=== PATIENT | female | born 1955 | race Caucasian/White ===

== ENCOUNTER → 2016-12-08 | Outpatient (CLI) | payer BC ==
--- NOTE | 2016-12-08 13:31 | CT ---
EXAM DESCRIPTION: Chest w/Contrast (accession [id number]), Abdomen/Pelvis w/Contrast (accession [id number]) CLINICAL HISTORY: ENDOMETRIAL CARCINOMA COMPARISON: CT abdomen pelvis January 12, 2014 TECHNIQUE: Postcontrast CT images of the chest, abdomen, and pelvis are obtained. CT scan done according to ALARA (As Low As Reasonably Achievable). FINDINGS: CT chest: The heart and great vessels are unremarkable. Mild coronary artery calcifications are seen. Heterogeneous low-attenuation lesion in the inferior left lobe of the thyroid measures 1.5 cm transverse. No pathologically enlarged mediastinal, hilar, or axillary lymphadenopathy seen. No significant pleural or pericardial effusion. Lungs are normally aerated and clear. No worrisome pulmonary nodules are identified. Osseous structures show no aggressive bony lesions. Mild spondylitic changes of the spine are seen. CT abdomen and pelvis: Liver, spleen, pancreas, adrenal glands are unremarkable. Cholecystectomy changes are seen. Abdominal vasculature is unremarkable. Kidneys show no ureteral obstruction. Fluid attenuation parapelvic cysts on the left kidney are seen. Urinary bladder is contracted and unremarkable. Uterus is unremarkable. Mildly heterogeneous appearance to the endometrium is nonspecific on CT imaging. No abnormal adnexal mass is seen. The appendix is unremarkable. No small bowel obstruction is seen. Colon is unremarkable. No significant diverticular disease. No pathologically enlarged abdominal or retroperitoneal lymphadenopathy is seen. Osseous structures show moderate degenerative changes. No aggressive bony lesions are seen. Degenerative changes of the lower lumbar spine are seen. IMPRESSION: No CT evidence of metastatic disease to the chest, abdomen, or pelvis. Simple left parapelvic cyst. The lower pole nephrolithiasis seen on previous exam is not appreciated on today's exam because of contrast opacification of the collecting system. Incidental thyroid nodule in the lower pole left lobe. Recommend follow-up ultrasound imaging. This lesion measures 1.5 cm transverse. Electronically signed by: Geo Sandy MD 12/08/2016 1:30 PM [employer]
== END | disposition home or self-care (01) ==
LOC: CT 08:46
PROVIDERS: ATTEND Family Medicine
DX: C54.1 Malignant neoplasm of endometrium (principal)

== ENCOUNTER → 2017-02-01 | Outpatient (CLI) | payer BC ==
--- NOTE | 2017-02-01 22:53 | MRI ---
EXAM: Lumbar Spine w/o Contrast CLINICAL INDICATION: 61-year-old female with radiculopathy. Technologist note: Radiculopathy with most pain along the RIGHT posterior hip and buttocks. History of endometrial cancer. COMPARISON: None. TECHNIQUE: Multiplanar, multi-sequence MR images of the lumbar spine without contrast. FINDINGS: Lumbar spine: Heterogeneous appearance of the lumbar spine bone marrow including the vertebral bodies and posterior elements suggesting red marrow reconversion, a finding which may be seen in the setting of anemia, obesity, granulocyte colony stimulating factor administration and infiltrative marrow processes. No discrete lesion is clearly identified, however further evaluation with postcontrast imaging may be considered for further assessment. Diffusely decreased disk signal intensity present throughout the lumbar spine compatible with degenerative disk change. Decreased disk height at the L5-S1 level compatible with disk degenerative change. No increase in signal intensity is seen on STIR images to suggest acute abnormalities. The pre-and paravertebral soft tissues are within normal limits. The visualized spinal cord demonstrates normal caliber, signal intensity and morphology. L1-2: within normal limits without central or neuroforaminal narrowing. L2-3: within normal limits without central or neuroforaminal narrowing. L3-4: within normal limits without central or neuroforaminal narrowing. Ligamentum flavum hypertrophy and bilateral facet joint effusion. L4-5: Mild diffuse disk bulge otherwise within normal limits without central or neuroforaminal narrowing. Mild effacement of the bilateral lateral recess. Ligamentum flavum and LEFT facet joint effusion with mild facet hypertrophy. L5-S1: Mild diffuse disk bulge otherwise within normal limits without central spinal canal narrowing. Moderate bilateral neuroforaminal narrowing secondary to posterior osseous spurring and disk bulge. Limited abdominal imaging is within normal limits. IMPRESSION: 1. Degenerative changes of the lumbar spine as detailed above. 2. Mottled appearance of the bone marrow with differential and details as above. Electronically signed by: Amanda Donald MD 02/01/2017 10:52 PM CDT
== END | disposition home or self-care (01) ==
LOC: MRI 09:59
PROVIDERS: ATTEND Family Medicine
DX: M54.16 Radiculopathy, lumbar region (principal)

== ENCOUNTER → 2017-03-09 | Outpatient (CLI) | payer BC ==
--- NOTE | 2017-03-09 15:04 | NM ---
EXAM DESCRIPTION: Bone Scan, Whole Body CLINICAL HISTORY: 61 years Female, LUMBAR PAIN COMPARISON: None. TECHNIQUE: 29 mCi technetium MDP FINDINGS: Spot imaging of the skeletal structures demonstrates normal renal and bladder activity and a normal distribution of the isotope with no areas of abnormal increased activity in the region of the lumbar spine in this patient with back pain. The remainder of the spine and pelvis is unremarkable. Focal increased activity at the base of each great toe suggest degenerative arthropathy. Mild increased degenerative activity in the region of the right ankle is also noted. No evidence of a metastatic or destructive process is seen. IMPRESSION: Essentially normal bone scan with no abnormalities noted within the axial skeleton, particularly in the lumbar spine. Degenerative activity at the base of each great toe and in the region of the right ankle. Electronically signed by: Ariel Kumar MD 03/09/2017 3:03 PM CDT
== END ==
LOC: NM 07:26
PROVIDERS: ATTEND Physician Assistant
DX: M54.5 Low back pain (principal); Z85.9 Personal history of malignant neoplasm, unspecified

== ENCOUNTER → 2017-09-08 | Outpatient (CLI) | payer BC ==
--- NOTE | 2017-09-10 17:35 | CT ---
EXAM DESCRIPTION: Abdomen/Pelvis w/Contrast CLINICAL HISTORY: Malignant neoplasm of endometrium- Generalized abdominal pain COMPARISON: 01/12/2014 TECHNIQUE: Contiguous axial images of the abdomen and pelvis were obtained after the administration of intravenous contrast followed by reconstruction images.This exam was performed according to our departmental dose-optimization program, which includes automated exposure control, adjustment of the mA and/or kV according to patient size and/or use of iterative reconstruction technique. FINDINGS: There are small amounts of fluid in the abdomen with mild thickening of portions of the endometrium in the lower abdomen. No definite focal mass is seen. There is a probable splenule anterior to the spleen. Mild apparent thickening of the wall of the colon is again seen in the splenic flexure and descending colon but no longer seen in the transverse colon, and could reflect inflammation. Neoplasm or ischemia are less likely. There is no significant soft tissue stranding of the surrounding fat. The liver, spleen, pancreas and kidneys are within normal limits. There is no hydronephrosis. The gallbladder is surgically absent. Adrenal glands are within normal limits. Aorta is normal in caliber and tapering. No free air. No bowel obstruction. IMPRESSION: Interval development of mild thickening of portions of the mesentery along with small amounts of fluid in these regions. This is nonspecific but follow-up is recommended given this patient's history. There is again thickening of the wall of the descending colon, nonspecific. No other interval significant change. Electronically signed by: Nima Ponce 09/10/2017 5:34 PM [employer]
== END | disposition home or self-care (01) ==
LOC: CT 11:32
PROVIDERS: ATTEND Internal Medicine Gastroenterology
DX: R10.84 Generalized abdominal pain (principal)

== ENCOUNTER → 2017-09-28 | Outpatient (CLI) | payer BC ==
--- NOTE | 2017-10-04 14:09 | MAM ---
EXAM DESCRIPTION: 3D Screening BILATERAL : Digital Mammography. CLINICAL HISTORY: 62 years Female SCREENING . No complaints. No family history breast cancer. Postmenopausal. No HRT. Prior cyst aspiration and biopsy with removal of fibroadenoma right breast. COMPARISON: 2-D digital screening bilateral studies 07/19/2016 and 07/14/2015. Report from prior examination also reviewed. TECHNIQUE: Bilateral CC and MLO projection full-field images, 3-D tomosynthesis digital mammographic technique. Also bilateral synthesized CC/ MLO full-field images. CAD not utilized. FINDINGS: The breast parenchymal density pattern is: Scattered areas of fibroglandular density. No skin thickening or nipple retraction bilateral solitary microcalcifications. Left axillary lymph node. No focal, stellate mass or density, focal asymmetry , and no suspicious microcalcifications bilaterally. Stable mammograms compared to prior study, taking into account differences in mammographic technique IMPRESSION: BI-RADS CATEGORY: 2 - BENIGN FINDINGS. FOLLOW UP: Routine digital bilateral screening, one year interval from 2016. Written communication explaining the IMPRESSION and follow-up, will be mailed to the patient and referring health care provider. According to the [employer], yearly mammograms are recommended starting at age 40 and continuing as long as a woman is in good health. Any breast change noted on a breast self-exam should be reported promptly to the patient's healthcare provider. Breast MRI is recommended for women with an approximately 20-25% or greater lifetime risk of breast cancer, including women with a strong family history of breast or ovarian cancer and women who have been treated for Hodgkin's disease. A negative mammographic report should not delay tissue diagnosis in patients with significant clinical history or physical findings. Extremely dense breast tissue limits the sensitivity of digital mammography. Electronically signed by: Nima Martin MD 10/04/2017 2:07 PM [facility]
== END ==
LOC: MAMMO 11:55
PROVIDERS: ATTEND Family Medicine
DX: Z12.31 Encounter for screening mammogram for malignant neoplasm of breast (principal)
CPT/HCPCS: 77063; G0202

== ENCOUNTER → 2018-02-27 | Outpatient (CLI) | payer BC | LOC: GMAB 11:15 | PROVIDERS: ATTEND Family Medicine | DX: Z00.01 Encounter for general adult medical examination with abnormal findings (principal) ==

== ENCOUNTER 2018-04-12 21:22 | Emergency (ER) | payer BC ==
[2018-04-12] MEDS ORDERED: cefTRIAXone SODIUM 1 GM VIAL IM ONE (21:50)
[2018-04-12] MEDS ORDERED: TETANUS,DIPHTHERIA,PERTUSSIS 1 EA SYG IM ONE (21:50)
--- NOTE | 2018-04-12 21:54 | ED.PDOC ---
History of Present Illness - General Time Seen by Provider: 04/12/18 21:50 Source: patient Exam Limitations: no limitations - History of Present Illness Initial Comments: patient comes in today for fever 2 days up to 103. Patient has been feeling achy with some nausea but no emesis. Patient had noticed she had what looks like an insect bite on her right labia and right inner thigh. Patient states the one on her thigh has gotten very swollen, hot, and more painful. Patient was concerned because that side also has lymphedema that was a result of her treatment for her uterine cancer last year. Patient has taken Tylenol over-the- counter with some improvement until the Tylenol wears off and her fever returns. She has a little bit of allergies but no sore throat, nasal congestion , cough, shortness of breath, or diarrhea. She tends toward constipation and her last bowel movement was 2 days ago. Timing/Duration: yesterday Fever Severity/Quality: greater than 102 F Fever Therapy CERAMIC ARTIST: Tylenol Associated Symptoms: muscle aches, rash Review of Systems - Review of Systems Constitutional: States: fever, malaise. Denies: chills, diaphoresis EENTM: Denies: eye pain, blurred vision, ear pain, nose pain, throat pain, throat swelling, mouth pain Respiratory: Denies: cough, short of breath, wheezing Cardiology: Denies: chest pain, edema, palpitations Gastrointestinal/Abdominal: States: constipation, nausea. Denies: abdominal pain, diarrhea, vomiting Genitourinary: States: no symptoms reported. Denies: discharge, dysuria, frequency, hematuria Musculoskeletal: States: no symptoms reported Skin: States: see HPI Neurological: States: see HPI Past Medical History (General) - Patient Medical History Hx Other PMH: Yes - Uterine cancer s/p radiation, Nephrolithiasis, lymphedema Surgical History: other - Hyst - Vaccination History Hx Tetanus, Diphtheria Vaccination: Yes - Social History Hx Tobacco Use: No Family Medical History - Family History Mother Family History: No Known Physical Exam - Physical Exam General Appearance: Alert, No apparent distress Eye Exam: bilateral normal ENT Exam: normal ENT inspection, hearing grossly normal, TMs normal, pharynx normal Neck: non-tender, full range of motion, supple, normal inspection Respiratory: chest non-tender, lungs clear, normal breath sounds, no respiratory distress Cardiovascular/Chest: normal peripheral pulses, regular rate, rhythm, no edema, no gallop, no JVD, no murmur Gastrointestinal/Abdominal: normal bowel sounds, non tender, soft, no organomegaly, no pulsatile mass Extremity: other - R inner thigh with 23 x 24 cm area of erythema with central induration with no fluctulance and positive calor. R labia with erythema but no fluctulance and no sores Neurologic: no motor/sensory deficits, alert, oriented x 3 Progress - Progress Progress: 04/12/18 22:27 04/12/18 22:16 URINALYSIS Stat Laboratory Results WBC 11.7 K/mm3 (4.8-10.8) H 04/12/18 22:00 RBC 4.17 M/mm3 (4.20-5.40) L 04/12/18 22:00 Hgb 13.0 gm/dL (12.0-16.0) 04/12/18 22:00 Hct 38.6 % (36.0-47.0) 04/12/18 22:00 MCV 92.4 fl (81.0-99.0) 04/12/18 22:00 MCH 31.1 pg (27.0-31.0) H 04/12/18 22:00 MCHC 33.6 g/dL (33.0-37.0) 04/12/18 22:00 RDW 12.9 % (11.5-14.5) 04/12/18 22:00 Plt Count 181 K/mm3 (130-400) 04/12/18 22:00 MPV 8.2 fl (7.40-10.4) 04/12/18 22:00 Absolute Neuts (auto) 10.50 K/uL (1.8-6.8) H 04/12/18 22:00 Absolute Lymphs (auto) 0.50 K/uL (1.0-3.4) L 04/12/18 22:00 Absolute Monos (auto) 0.70 K/uL (0.2-0.8) 04/12/18 22:00 Absolute Eos (auto) 0.00 K/uL (0.0-0.4) 04/12/18 22:00 Absolute Basos (auto) 0.00 K/uL (0.0-0.1) 04/12/18 22:00 Neutrophils % 89.4 % (42.0-78.0) H 04/12/18 22:00 Lymphocytes % 4.0 % (20.0-50.0) L 04/12/18 22:00 Monocytes % 6.3 % (2.0-9.0) 04/12/18 22:00 Eosinophils % 0.1 % (1.0-5.0) L 04/12/18 22:00 Basophils % 0.2 % (0.0-2.0) 04/12/18 22:00 Sodium 140 mmol/L (135-145) 04/12/18 22:00 Potassium 3.5 mmol/L (3.6-5.0) L 04/12/18 22:00 Chloride 109 mmol/L (101-111) 04/12/18 22:00 Carbon Dioxide 24 mmol/L (21-31) 04/12/18 22:00 Anion Gap 10.5 (12-18) L 04/12/18 22:00 BUN 18 mg/dL (7-18) 04/12/18 22:00 Creatinine 0.77 mg/dL (0.6-1.3) 04/12/18 22:00 BUN/Creatinine Ratio 23.4 (10-20) H 04/12/18 22:00 Random Glucose 132 mg/dL (70-105) H 04/12/18 22:00 Serum Osmolality 283.2 mOsm/L (275-295) 04/12/18 22:00 Lactic Acid 0.9 mmol/L (0.5-2.2) 04/12/18 22:00 Calcium 8.7 mg/dL (8.4-10.2) 04/12/18 22:00 Total Bilirubin 0.6 mg/dL (0.2-1.0) 04/12/18 22:00 AST 36 IU/L (10-42) 04/12/18 22:00 ALT 48 IU/L (10-60) 04/12/18 22:00 Alkaline Phosphatase 77 IU/L (42-121) 04/12/18 22:00 Serum Total Protein 6.7 gm/dL (6.4-8.2) 04/12/18 22:00 Albumin 3.5 g/dl (3.2-5.5) 07/05/18 22:00 Globulin 3.2 gm/dL (2.3-3.5) 04/12/18 22:00 Albumin/Globulin Ratio 1.1 (1.1-1.9) 04/12/18 22:00 Departure - Departure Clinical Impression: Cellulitis Qualifiers: Site of cellulitis: extremity Site of cellulitis of extremity: lower extremity Laterality: right Qualified Code(s): L03.115 - Cellulitis of right lower limb Disposition: Discharge to Home or Self Care Condition: Fair Diet: regular diet Activity: increase activity as tolerated Referrals: KRYS MEDINA MD [Primary Care Provider] - 1-2 Weeks Prescriptions: Cephalexin Monohydrate [Keflex] 500 mg PO TID 10 Days #30 cap Home Medications: Ambulatory Orders Denosumab [Prolia] 60 mg SC .TWICE A YEAR 05/24/15 Esomeprazole Magnesium [Nexium 24Hr] 20 mg PO DAILY 05/24/15 Raloxifene HCl [Evista] 60 mg PO DAILY 05/24/15 Cephalexin Monohydrate [Keflex] 500 mg PO TID 10 Days #30 cap 04/12/18 Additional Instructions: Return to ER for worsening redness, increase pain, intractable emesis. Follow up with PCP in 2 days to recheck area.
[2018-04-12 22:04] VITALS: O2SAT 98
[2018-04-12] MEDS ORDERED: IBUPROFEN 200 MG TAB PO ONE (22:16)
[2018-04-12] MEDS ORDERED: LIDOCAINE 1% 2 ML VIAL INJ ONE (22:21)
[2018-04-12 22:57] VITALS: BP 109/58; TEMP 101
== END 2018-04-12 22:57 | disposition home or self-care (01) ==
LOC: ER 21:22
DX: L03.115 Cellulitis of right lower limb (principal); Z85.42 Personal history of malignant neoplasm of other parts of uterus; Z23 Encounter for immunization
CPT/HCPCS: 36415; 80053; 81001; 83605; 85025; 90471; 90715; J0696

== ENCOUNTER → 2018-06-09 | Outpatient (CLI) | payer BC, MEDICARE ==
--- NOTE | 2018-06-09 10:15 | RAD ---
EXAM DESCRIPTION: Hand,Right 3 Views CLINICAL HISTORY: HAND PAIN COMPARISON: None FINDINGS: Three x-ray views of the right hand were submitted. There is an acute mildly displaced transverse fracture at the metadiaphysis of the proximal phalanx of the fifth digit. There is no dislocation.. There is no radiopaque foreign body material. IMPRESSION: Acute mildly displaced transverse fracture at the metadiaphysis of the proximal phalanx of the fifth digit. There is no dislocation. Electronically signed by: Charles Becerril MD 06/09/2018 10:14 AM CDT
== END ==
LOC: RAD 09:49
PROVIDERS: ATTEND Nurse Practitioner Family
DX: S62.646A Nondisplaced fracture of proximal phalanx of right little finger, initial encounter for closed fracture (principal)

== ENCOUNTER → 2018-10-03 | Outpatient (CLI) | payer BC, MEDICARE ==
--- NOTE | 2018-10-04 11:17 | MAM ---
EXAM DESCRIPTION: 3D Screening BILATERAL : Digital Mammography. CLINICAL HISTORY: 63 years Female ANNUAL SCREENING . No complaints. No personal or family history of breast cancer. Childbirth. Postmenopausal. No HRT. Prior cyst aspiration biopsy right breast. Lifetime risk of developing breast cancer (Tyrer-Cuzick model)(%): 8.7. COMPARISON: Bilateral screening digital breast tomosynthesis 09/28/2017.. No prior reports available. TECHNIQUE: Bilateral CC and MLO projection full-field images, digital tomosynthesis mammographic technique. Bilateral digital 2-D full-field MLO images. CAD not available for tomosynthesis or 2-D images. FINDINGS: The breast parenchymal density pattern is: Scattered areas of fibroglandular density. No skin thickening or nipple retraction. Bilateral solitary microcalcifications. Vascular calcifications bilaterally. No new focal, stellate mass or density, focal asymmetry , and no suspicious microcalcifications bilaterally. Stable mammograms compared to prior study. IMPRESSION: Benign exam. BIRAD CATEGORY: 2 BENIGN FINDINGS. RECOMMENDATIONS: FOLLOW UP: Routine digital bilateral mammographic screening, one year interval from September 2018. Written communication explaining the IMPRESSION and follow-up, will be mailed to the patient and referring health care provider. According to the [employer], yearly mammograms are recommended starting at age 40 and continuing as long as a woman is in good health. Any breast change noted on a breast self-exam should be reported promptly to the patient's healthcare provider. Breast MRI is recommended for women with an approximately 20-25% or greater lifetime risk of breast cancer, including women with a strong family history of breast or ovarian cancer and women who have been treated for Hodgkin's disease. A negative mammographic report should not delay tissue diagnosis in patients with significant clinical history or physical findings. Extremely dense breast tissue limits the sensitivity of digital mammography. Electronically signed by: Nima Martin MD 10/04/2018 11:16 AM HAND SLITTER
== END ==
LOC: MAMMO 09:00
PROVIDERS: ATTEND Family Medicine
DX: Z12.31 Encounter for screening mammogram for malignant neoplasm of breast (principal)

== ENCOUNTER → 2019-01-09 | Outpatient (CLI) | payer MEDICARE, BC ==
--- NOTE | 2019-01-10 08:07 | MRI ---
EXAM DESCRIPTION: Lumbar Spine w/o Contrast CLINICAL HISTORY: LUMBAR RADICULOPATHY, right lower extremity pain. COMPARISON: May 23, 2018 TECHNIQUE: MRI of the lumbar spine is performed according to our usual protocol with axial and sagittal multi sequence imaging. FINDINGS: Normal alignment of the vertebral column is present with preservation of vertebral height and advanced disc desiccation and disc space narrowing at L5-S1, unchanged from prior study with endplate irregularity. Marrow signal is not increased to suggest either an edematous process or infiltrative process. The conus is positioned at the L1-2 level with no intradural or intramedullary mass noted. Multilevel mild disc desiccation from L2-3 and distally is noted and unchanged from prior study. Lower thoracic spine and thoracolumbar junction is normal. The retroperitoneal and paraspinous structures are normal. L1-2: the disc is well hydrated. There is no loss of height. There is no bulging. The facets are unremarkable with no significant hypertrophy. There is no stenosis or impingement. L2-3: Mild disc desiccation with preserved disc height and endplate appearance with normal disc contour and minimal facet arthropathy with adequate canal and neural foramina. L3-4: Mild disc desiccation with minimal annular prominence but normal disc contour with mild facet arthropathy and adequate canal and neural foramina. L4-5: Mild disc desiccation with preserved disc height with mild annular bulge and adequate canal. Moderate ligamentum flavum hypertrophy and mild facet arthropathy. With modest narrowing at the entrance of each L4 neural foramen without lateralizing right or left of protrusion or herniation. The thecal sac is lower limits of normal. L5-S1: Degenerative disc narrowing and loss of signal with mild annular bulge with adequate canal, unchanged. Adequate left lateral recess and neural foramen modest right L5 foraminal narrowing secondary to disc space narrowing facet disease and a small right lateral and far lateral disc protrusion. This also abuts the descending S1 nerve root within the lateral recess. IMPRESSION: 1. Mild multilevel disc desiccation, unchanged from prior studies with no significant neural compression. The thecal sac is lower range of normal at L4-5 with modest ligamentum flavum hypertrophy and mild annular bulge. 2. Abnormal L5-S1 disc with disc space narrowing disc desiccation and broad-based annular bulge and a very small right lateral and far lateral disc protrusion with modest compromise on a multifactorial basis of the right L5 neural foramen and annular bulge abutting the descending right S1 nerve root. Mild right-sided neural compression at this level suspected Electronically signed by: Ariel Kumar MD 01/10/2019 8:04 AM CDT
== END ==
LOC: MRI 09:00
PROVIDERS: ATTEND Physician Assistant
DX: M51.16 Intervertebral disc disorders with radiculopathy, lumbar region (principal)

== ENCOUNTER → 2019-02-08 | Outpatient (CLI) | payer MEDICARE, BC ==
--- NOTE | 2019-02-10 08:34 | CT ---
EXAM DESCRIPTION: Pelvis: Computed Tomography. CLINICAL HISTORY: SACROCOCCYGEAL DISORDERS. Back and right hip pain for 3 months. COMPARISON: MRI lumbar spine without contrast 01/09/2019. CT scan abdomen and pelvis 05/24/2018. TECHNIQUE: Spiral-axial scans 2.5 x 2.5 mm intervals through the pelvis: no water soluble barium contrast; no IV contrast. Coronal and sagittal 2.0 mm reconstructions. Total Exam DLP: 575.45 mGy-cm. This exam was performed according to our departmental CT dose-optimization program which includes automated exposure control, adjustment of the mA and/or kV according to patient size and/or use of iterative reconstruction technique; to reduce radiation dose to as low as reasonably achievable (ALARA). FINDINGS: Pelvic Organs: Urinary bladder not well distended with no radiodense stones. Vaginal cuff is unremarkable. Ovaries not seen in the adnexa. No free fluid. Mesentery: Negative. Small Bowel: Normal caliber included segments. Terminal Ileum: Normal caliber. Cecum: normal caliber. Appendix not seen. Colon: Normal caliber included segments. Spine: Moderate to severe disc space loss with posterior disc osteophyte bulge into the canal with moderate narrowing. Right side disc osteophyte complex encroaching on the right foramen and the exiting right L5 nerve. Minimal encroachment on the right subarticular recess by endplate spurs. Bilateral hypertrophic arthrosis facet joints more right than left with right side spurs abutting the right subarticular recess and impressing on the right lateral thecal sac. Moderate to severe narrowing of the left foramen by endplate spurs also abutting the exiting left L5 nerve in the foramen and the descending left S1 nerve in the lateral recess. Minimal bulging of the L4-5 disc posteriorly in the midline narrowing the canal with moderate soft tissue narrowing of the left L4-5 foramen, abutting the exiting left L4 nerve. Bony Pelvis: Marginal spurs on the anterior and superior SI joints with gas formation in the joint space. Hypertrophic arthrosis pubic symphysis. Bilateral narrowing of the posterior hip joints. Hypertrophy of the superior lateral left acetabulum with spur abutting the mid and posterior aspect of the inferior-lateral femoral head articular surface. Inguinal Canals: Bilateral fatty inguinal hernias not containing bowel. Pelvic Wall/Back Soft Tissues: Minimal diastases of the umbilicus but no bowel herniation. IMPRESSION: 1. Right-sided disc osteophyte complex at L5-S1 encroaching on the right foramen and the exiting right L5 nerve. Endplate spurs and right facet arthropathy with narrowing of the right subarticular recess. Moderate to severe narrowing of the left foramen with endplate spurs encroaching on the foramen and abutting the left L5 nerve. 2. Hypertrophic changes in the superior lateral left acetabular facet narrowing the lateral and posterolateral hip joint and abutting the opposing femoral head. Electronically signed by: Nima Martin MD 02/10/2019 8:32 AM CDT
== END ==
LOC: CT 13:16
PROVIDERS: ATTEND Neurological Surgery
DX: M53.3 Sacrococcygeal disorders, not elsewhere classified (principal); M46.07 Spinal enthesopathy, lumbosacral region

== ENCOUNTER → 2019-04-03 | Outpatient (CLI) | payer MEDICARE, BC | LOC: GMAE 11:32 | PROVIDERS: ATTEND Family Medicine | DX: I10 Essential (primary) hypertension (principal); E78.2 Mixed hyperlipidemia; E55.9 Vitamin D deficiency, unspecified ==

== ENCOUNTER 2019-06-11 09:05 | Emergency (ER) | payer MEDICARE, BC ==
[2019-06-11] MEDS ORDERED: ONDANSETRON INJ 4 MG/2 ML VIAL IV ONE (09:25)
[2019-06-11] MEDS ORDERED: LACTATED RINGERS 1,000 ML IVS ONE (09:27)
--- NOTE | 2019-06-11 10:19 | ED.PDOC ---
History of Present Illness - General Chief Complaint: Abdominal Pain Stated Complaint: Abdominal cramping, low back discomfort Time Seen by Provider: 06/11/19 09:07 Information Source: patient, RN/MD Exam Limitations: no limitations - History of Present Illness Initial Comments: Patient is a 63 yo F presenting with complaints of abdominal pain and diarrhea since yesterday evening. She denies any fevers or chills. She has not any dysuria, hematuria, or urinary frequency. She was at a barbecue yesterday afternoon however no one else became sick after eating ribs. She denies any recent antibiotics or hospitalizations. She has no previous history of appendectomy. She does have a previous history of diverticulitis. Patient also has a previous history of uterine cancer status post hysterectomy. She states the pain is currently in her lower abdomen bilaterally. The pain has radiated previously to her lower back. Abdominal Pain Onset Location: RLQ, LLQ Pain Radiation: back Quality: moderate, cramping, waxing/waning Timing/Duration: 7-24 hours Improving Factors: nothing Worsening Factors: nothing Associated Symptoms: back pain, diarrhea Review of Systems - Review of Systems Constitutional: States: no symptoms reported EENTM: States: no symptoms reported Respiratory: States: no symptoms reported Cardiology: States: no symptoms reported Gastrointestinal/Abdominal: States: abdominal pain, diarrhea Genitourinary: States: no symptoms reported Past Medical History (General) - Patient Medical History Hx Stroke: No Hx Congestive Heart Failure: No Hx Diabetes: No Hx Gastroesophageal Reflux: Yes - Hx IBS Hx Cancer: Yes - Uterine 2017 Surgical History: Hysterectomy - Vaccination History Hx Tetanus, Diphtheria Vaccination: Yes Hx Influenza Vaccination: Yes - 2018 Hx Pneumococcal Vaccination: Yes - Social History Hx Tobacco Use: No Hx Alcohol Use: Yes - Infrequent Hx Depression: No Hx Physical Abuse: No Hx Emotional Abuse: No - Female History Patient : No Family Medical History - Family History Mother Family History: No Known Hx Family Hypertension: Yes - mom/dad Hx Cardiac Disease: Yes - mom Physical Exam - Physical Exam General Appearance: Alert, No apparent distress, Well Developed, Well Nourished Neck: full range of motion, supple, normal inspection Respiratory: lungs clear, normal breath sounds, no respiratory distress, no accessory muscle use Cardiovascular/Chest: normal peripheral pulses, regular rate, rhythm, no edema Gastrointestinal/Abdominal: normal bowel sounds, soft, tenderness - LLQ and RLQ. No TTP at [place]. No Pryor sign Back Exam: normal inspection, no CVA tenderness Neurologic: alert, oriented x 3 Progress - Progress Progress: DDx: Appendicitis, diverticulitis, gastroenteritis, enteritis, renal stone, UTI, pyelonephritis, infectious colitis 06/11/19 10:30 Patient updated on plan for lab work, zofran, fluids, Fentanyl and CT Abdomen pelvis. 06/11/19 11:07 Patient updated on results of lab work and CT findings. She is feeling better and cramping has resolved. Her symptoms are likely from enteritis vs. gastroenteritis given findings seen on CT. Patient feels comfortable with plan for discharge home with Rx for Bentyl. Appendicitis return instructions given. 06/11/19 11:48 patient presents for evaluation of abdominal pain and diarrhea. She is overall well-appearing and mechanically stable. Given her bilateral lower abdominal tenderness and diarrhea, CT abdomen and pelvis was obtained. CBC was suggestive of a slight leukocytosis with neutrophilic shift. Metabolic panel was significant for prerenal azotemia which she was given a liter of lactated Ri nger's. She was not acidotic. Urinalysis was not significant for signs of a urinary tract infection. Her symptoms weren't consistent with pyelonephritis. Her symptoms are also inconsistent with renal stone and renal colic. CT was significant for no signs of diverticulitis, colitis, or appendicitis. Her cramping pain had subsided following CT scan. Her symptoms were more consistent with enteritis. I discussed that we will plan for discharge home with a prescription for Bentyl. Discussed that the patient should return to the ER immediately if she starts having fevers, decreased appetite, or worsening abdominal pain localizing to the right lower quadrant. She was comfortable with plan for discharge home and outpatient follow-up. - Results/Orders Results/Orders: 06/11/19 09:27 Hold Metformin x 48Hrs [id number] Laboratory Results WBC 11.5 K/mm3 (4.8-10.8) H 06/11/19 09:19 RBC 4.71 M/mm3 (4.20-5.40) 06/11/19 09:19 Hgb 14.6 gm/dL (12.0-16.0) 06/11/19 09:19 Hct 43.4 % (36.0-47.0) 06/11/19 09:19 MCV 92.2 fl (81.0-99.0) 06/11/19 09:19 MCH 30.9 pg (27.0-31.0) 06/11/19 09: MCHC 33.5 g/dL (33.0-37.0) 06/11/19 09:19 RDW 13.3 % (11.5-14.5) 06/11/19 09:19 Plt Count 200 K/mm3 (130-400) 06/11/19 09:19 MPV 8.8 fl (7.40-10.4) 06/11/19 09:19 Absolute Neuts (auto) 8.60 K/uL (1.8-6.8) H 06/11/19 09:19 Absolute Lymphs (auto) 1.80 K/uL (1.0-3.4) 06/11/19 09:19 Absolute Monos (auto) 0.90 K/uL (0.2-0.8) H 06/11/19 09:19 Absolute Eos (auto) 0.20 K/uL (0.0-0.4) 06/11/19 09:19 Absolute Basos (auto) 0.00 K/uL (0.0-0.1) 06/11/19 09:19 Neutrophils % 75.1 % (42.0-78.0) 06/11/19 09:19 Lymphocytes % 15.6 % (20.0-50.0) L 06/11/19 09:19 Monocytes % 7.5 % (2.0-9.0) 06/11/19 09:19 Eosinophils % 1.6 % (1.0-5.0) 06/11/19 09:19 Basophils % 0.2 % (0.0-2.0) 06/11/19 09:19 Sodium 140 mmol/L (135-145) 06/11/19 09:19 Potassium 3.3 mmol/L (3.6-5.0) L 06/11/19 09:19 Chloride 106 mmol/L (101-111) 06/11/19 09:19 Carbon Dioxide 24 mmol/L (21-31) 06/11/19 09:19 Anion Gap 13.3 (12-18) 06/11/19 09:19 BUN 16 mg/dL (7-18) 06/11/19 09: Creatinine 0.73 mg/dL (0.6-1.3) 06/11/19 09: BUN/Creatinine Ratio 21.9 (10-20) H 06/11/19 09:19 Random Glucose 104 mg/dL (70-105) 06/11/19 09:19 Serum Osmolality 280.9 mOsm/L (275-295) 06/11/19 09: Calcium 9.3 mg/dL (8.4-10.2) 06/11/19 09: Total Bilirubin 0.6 mg/dL (0.2-1.0) 06/11/19 09: AST 24 IU/L (10-42) 06/11/19 09: ALT 24 IU/L (10-60) 06/11/19 09: Alkaline Phosphatase 45 IU/L (42-121) 06/11/19 09: Serum Total Protein 6.9 gm/dL (6.4-8.2) 06/11/19 09: Albumin 3.9 g/dl (3.2-5.5) 06/11/19 09: Globulin 3.0 gm/dL (2.3-3.5) 06/11/19 09: Albumin/Globulin Ratio 1.3 (1.1-1.9) 06/11/19 09: Lipase 24 U/L (22-51) 06/11/19 09:19 Urine Color Yellow (Yellow) 06/11/19 10:34 Urine Appearance Clear (Clear) 06/11/19 10:34 Urine pH 8.5 (4.5-7.8) H 06/11/19 10:34 Ur Specific [place] 1.015 (1.005-1.030) 06/11/19 10:34 Urine Protein Negative mg/dL 06/11/19 10:34 Urine Glucose (UA) Negative mg/dL (Negative) 06/11/19 10:34 Urine Ketones Trace mg/dL (NEGATIVE) 06/11/19 10:34 Urine Blood Negative (Negative) 06/11/19 10:34 Urine Nitrite Negative 06/11/19 10:34 Urine Bilirubin Negative (NEGATIVE) 06/11/19 10:34 Urine Urobilinogen 0.2 mg/dL (0.2-1.0) 06/11/19 10:34 Ur Leukocyte Esterase Negative (Negative) 06/11/19 10:34 Urine RBC 0-1 /hpf 06/11/19 10:34 Urine WBC 0-1 /hpf 06/11/19 10:34 Ur Epithelial Cells 0 /hpf 06/11/19 10:34 Amorphous Sediment Trace 06/11/19 10:34 Urine Bacteria Rare 06/11/19 10:34 Urine Mucus Trace 06/11/19 10:34 CT Abdomen Pelvis: FINDINGS: The lung bases are clear. The liver and spleen are normal in appearance. The gallbladder is been previously removed. Surgical clips are seen in the region of gallbladder fossa. No biliary ductal dilatation is observed. The pancreas is normal in appearance. Imaging of the kidneys reveals no evidence of hydronephrosis mass or cyst. 2 small nonobstructing stones are identified in the left kidney. The largest measures 4.7 mm in diameter. Small lower pole right renal calculus is observed measuring 3.2 mm in diameter. No bowel abnormality is detected. A ventral hernia is observed in the left upper quadrant containing fat. No free fluid is observed. The patient is post hysterectomy. No inguinal region abnormality is seen. Degenerative changes are observed in the lower lumbar spine. IMPRESSION: 1. Cholecystectomy. 2. Small bilateral nonobstructing renal calculi are observed. 3. A ventral hernia is observed in the left upper quadrant containing fat. 4. Hysterectomy Departure - Departure Clinical Impression: Enteritis Time of Disposition: 11:09 Disposition: Discharge to Home or Self Care Departure Forms: ED Discharge - Pt. Copy, Patient Portal Self Enrollment Instructions: DI for Abdominal Pain-Adult Diet: bland diet Activity: increase activity as tolerated Prescriptions: Dicyclomine HCl [Bentyl] 10 mg PO QID #12 tab Home Medications: Ambulatory Orders Denosumab [Prolia] 60 mg SC .TWICE A YEAR 05/24/15 Esomeprazole Magnesium [Nexium 24Hr] 40 mg PO DAILY 05/24/15 Diclofenac [Zorvolex] 35 mg PO TID 04/12/18 Gabapentin [Neurontin] 600 mg PO TID 04/12/18 Tramadol HCl 50 mg PO BID 05/23/18 Dicyclomine HCl [Bentyl] 10 mg PO QID #12 tab 06/11/19
[2019-06-11] MEDS ORDERED: fentaNYL CITRATE INJ 50 MCG/ML AMP IV ONE (10:39)
--- NOTE | 2019-06-11 10:53 | CT ---
EXAM DESCRIPTION: Abdomen/Pelvis w/Contrast CLINICAL HISTORY: 63 years Female, LLQ and RLQ Pain COMPARISON: 23 May 2018 TECHNIQUE: Transaxial images were obtained with intravenous contrast medium without oral contrast media. Sagittal and coronal reconstruction was performed.This exam was performed according to our departmental dose-optimization program, which includes automated exposure control, adjustment of the mA and/or kV according to patient size and/or use of iterative reconstruction technique. FINDINGS: The lung bases are clear. The liver and spleen are normal in appearance. The gallbladder is been previously removed. Surgical clips are seen in the region of gallbladder fossa. No biliary ductal dilatation is observed. The pancreas is normal in appearance. Imaging of the kidneys reveals no evidence of hydronephrosis mass or cyst. 2 small nonobstructing stones are identified in the left kidney. The largest measures 4.7 mm in diameter. Small lower pole right renal calculus is observed measuring 3.2 mm in diameter. No bowel abnormality is detected. A ventral hernia is observed in the left upper quadrant containing fat. No free fluid is observed. The patient is post hysterectomy. No inguinal region abnormality is seen. Degenerative changes are observed in the lower lumbar spine. IMPRESSION: 1. Cholecystectomy. 2. Small bilateral nonobstructing renal calculi are observed. 3. A ventral hernia is observed in the left upper quadrant containing fat. 4. Hysterectomy Electronically signed by: Jorge A Whitehead MD 06/11/2019 10:52 AM CDT
[2019-06-11 12:27] VITALS: BP 117/72; TEMP 98.4; O2SAT 98
== END 2019-06-11 12:26 | disposition home or self-care (01) ==
LOC: ER 09:05
DX: K52.9 Noninfective gastroenteritis and colitis, unspecified (principal); K21.9 Gastro-esophageal reflux disease without esophagitis; Z85.42 Personal history of malignant neoplasm of other parts of uterus; Z90.710 Acquired absence of both cervix and uterus; Z90.49 Acquired absence of other specified parts of digestive tract; Z87.19 Personal history of other diseases of the digestive system
CPT/HCPCS: 36415; 74177; 80053; 81001; 83690; 85025; J2405; J3010; J7120

== ENCOUNTER → 2019-09-19 | Outpatient (CLI) | payer MEDICARE, BC ==
--- NOTE | 2019-09-20 16:39 | RAD ---
EXAM DESCRIPTION: Lumbar Spine 5 Views: CR/DR/XR CLINICAL HISTORY: 64 years Female SPINAL STENOSIS COMPARISON: MRI lumbar spine without contrast on the same visit. TECHNIQUE: 4 views. AP Lateral Lateral bilateral flexion-extension. Technically difficult study due to patient large body habitus and decreased bone density. FINDINGS: Lumbar type vertebra: 4. Transitional vertebrae: Fifth lumbar vertebra has a elongated right transverse process that articulates with the right iliac bone superior to the right SI joint. Disc spaces: Marked disc space loss L5-S1 with sclerosis of the endplates. Compression deformities: None. Bone Density: Mild to moderate bone density loss. Alignment: L4-5 and L5-S1 disc spaces and vertebral remain relatively stable with extension with the more superior segments moving posteriorly. With flexion, there is minimal forward movement from L3 to S1 but L4-5 and L5-S1 are unchanged. AP view shows mild L2-S1 levoscoliosis. Facet joints: Bilateral arthrosis L4-5 and L5-S1. Abdomen: Nonspecific bowel gas pattern. Large body habitus. IMPRESSION: L5 transitional vertebra involving the right transverse process. Advanced spondylosis L5-S1. Essentially no flexion or extension at L4-5 and L5-S1. Bilateral arthrosis L4-5 and L5-S1. Electronically signed by: Nima Martin MD 09/20/2019 4:38 PM FRONT END ASSISTANT
--- NOTE | 2019-09-20 17:04 | MRI ---
EXAM DESCRIPTION: Lumbar Spine w/o Contrast : Magnetic Resonance Imaging. CLINICAL HISTORY: LUMBAR STENOSIS COMPARISON: MRI scan lumbar spine 09 January 2019. TECHNIQUE: Multiplanar, multiple standard sequences, non contrast MRI, lumbar spine. FINDINGS: L5-S1: The disc is well visualized on axial T2 series 501, image 3. Moderate to severe disc space loss L5-S1 more to the left of midline and anterior. Moderate endplate reactive changes. Posterior small disc spur complex abutting the anterior thecal sac. Minimal degenerative hypertrophy of the bilateral facet joints and posterior flavum ligaments with minimal central canal stenosis. Moderate bilateral foraminal narrowing more on the left than the right. Stable since the prior study. L4-L5: Disc desiccation posterior midline tiny bulge. Degenerative hypertrophy of the posterior elements with narrowing of the posterior canal. AP canal diameter 10 mm. Moderate narrowing of the left foramen and mild narrowing of the right foramen. No change from the prior study. L3-L4: Normal signal in the disc and disc space maintained. Trace retrolisthesis. Tiny posterior bulge. Mild hypertrophic degeneration of the posterior elements. AP canal diameter 12 mm. Mild to moderate narrowing of the right foramen and mild narrowing of the left foramen. Stable since the prior study. L2-L3: Normal signal in the disc with disc space maintained. Canal and foramina patent. Minimal hypertrophy of the posterior ligaments and facets. Mild canal narrowing. Bilateral foramina are patent. No change from the prior study. L1-L2: Normal signal in the disc with disc space maintained. Minimal hypertrophy of the posterior ligaments. Canal and foramina are patent. Conus termination is below the disc space. Stable since the prior study. T12-L1: Disc, disc spaces, canal, foramina, and posterior elements are unremarkable. No change from the prior study. No scoliosis. Paravertebral soft tissues large body habitus posterior to the spine.. Distal cord normal signal and caliber. Normal marrow signal in the remaining vertebral bodies and the posterior elements. Vertebral bodies are not compressed at any level. IMPRESSION: 1. Multiple levels of hypertrophic degenerated flavum ligaments and degenerative facets at some levels. Some discs are desiccated but no significant bulging and no herniation. Upper level discs are minimally desiccated are normal. 2. Multifactorial borderline mild central canal stenosis at L4-L5 with moderate narrowing of the left foramen. No change from the prior study. 3. Moderate spondylosis L5-S1 and minimal central canal stenosis. Moderate foraminal narrowing. Stable since the prior study. No canal stenosis at other levels. Electronically signed by: Nima Martin MD 09/20/2019 5:02 PM [facility]
== END ==
LOC: MRI 13:00
PROVIDERS: ATTEND Anesthesiology Pain Medicine
DX: M48.062 Spinal stenosis, lumbar region with neurogenic claudication (principal); M47.896 Other spondylosis, lumbar region; M47.897 Other spondylosis, lumbosacral region

== ENCOUNTER → 2019-12-19 | Outpatient (CLI) | payer MEDICARE, BC | DX: Z12.31 Encounter for screening mammogram for malignant neoplasm of breast (principal) ==

== ENCOUNTER → 2020-02-05 | Outpatient (CLI) | payer MEDICARE, BC | LOC: GMAE 16:13 | PROVIDERS: ATTEND Family Medicine | DX: E55.9 Vitamin D deficiency, unspecified (principal); M81.0 Age-related osteoporosis without current pathological fracture ==

== ENCOUNTER → 2020-02-20 | Outpatient (CLI) | payer MEDICARE, BC ==
--- NOTE | 2020-02-20 10:23 | CT ---
EXAM DESCRIPTION: CT ABDOMEN AND PELVIS WITH CONTRAST CLINICAL HISTORY: BENIGN LIPOMATOUS NEOPLASM COMPARISON: June 11, 2019 TECHNIQUE: CT of the abdomen and pelvis are performed during IV bolus administration of nonionic contrast. Oral contrast media was not administered. This exam was performed according to our departmental dose-optimization program, which includes automated exposure control, adjustment of the mA and/or kV according to patient size and/or use of iterative reconstruction technique. FINDINGS: Lung bases are clear without infiltrate or effusion or mass. The liver normally enhances without enlargement or cystic or solid mass with surgical absence of the gallbladder and no evidence of ductal dilation. A small normal spleen is present. Small normal adrenal glands and normal enhancement of the pancreas without cystic or solid mass noted. The aorta and vena cava and retroperitoneum is unremarkable. Two small nonobstructing approximate 3 mm calculi lower pole of the right kidney within the calyces without hydronephrosis noted. Additional small three or 4 mm calculi involving the mid and lower pole left kidney with mild parapelvic cyst formation is present. No worrisome cystic or solid masses of either kidney evident. Small bilateral pelvic phleboliths an unremarkable appearance of the bladder noted. Delayed imaging demonstrates a small extrarenal pelvis bilaterally with single collecting system and layering contrast within the bladder. Small and large bowel caliber is normal with moderate stool in the right and transverse colon. Small normal appendix or portion of the appendix identified in a retrocolic location and normal in appearance. Minimal diverticulosis of the left colon suggested. No acute inflammatory changes or obstruction or ileus noted. Within the pelvis a normal vaginal cuff without identification of the uterus or adnexal structures noted. No abdominal or pelvic ascites noted. Left upper quadrant ventral hernia containing mesenteric fat several centimeters above the level of the umbilicus with an approximate 12 or 14 mm defect evident at the lateral margin of the rectus muscle noted with mesenteric fat extending laterally and posteriorly from this point in the subcutaneous structures. Slight enlargement of the amount of herniated fat is evident compared to previous 2019 study. This corresponds to the marked area of concern with the herniated fat approximately 2 cm in thickness and 9 cm in transverse. Bony spine is normally aligned with advanced degenerative disc narrowing at L5-S1 with vacuum phenomena. A distraction device between the L4 and L5 spinous processes is noted posteriorly. No destructive process or other abnormality noted. IMPRESSION: 1. Left upper quadrant ventral hernia defect at the lateral rectus muscle margin proximally 14 mm in diameter with increasing herniated mesenteric fat into the lateral subcutaneous tissues approximately 2 cm in thickness and 9 cm in diameter, slightly increased from previous study. No evidence of bowel herniation noted. 2. Minimal left colonic diverticulosis. 3. Small nonobstructing calyceal stones both kidneys 4. Minimal parapelvic cyst formation left renal hilum. 5. Advanced degenerative disc narrowing L5-S1. Electronically signed by: Ariel Kumar MD 02/20/2020 10:21 AM CDT
== END ==
LOC: CT 09:00
PROVIDERS: ATTEND Internal Medicine Gastroenterology
DX: D17.9 Benign lipomatous neoplasm, unspecified (principal); K43.9 Ventral hernia without obstruction or gangrene; K57.30 Diverticulosis of large intestine without perforation or abscess without bleeding; N20.0 Calculus of kidney; N28.1 Cyst of kidney, acquired; M51.37 Other intervertebral disc degeneration, lumbosacral region

== ENCOUNTER → 2020-04-15 | Outpatient (CLI) | payer MEDICARE, BC ==
--- NOTE | 2020-04-15 09:16 | MRI ---
Study: MRI of the Right Knee. Indication: PAIN Technique: Multiplanar, multi sequence MRI of the right knee was obtained without intravenous contrast. Comparison: None. Findings: Mild mucoid degeneration proximal PCL without acute tear. ACL intact. 2 tiny loose bodies posterior to the PCL insertion measuring up to 5 mm. MCL and lateral collateral ligament complex intact. Degenerative signal change posterior horn and body medial meniscus without tear. High-grade radial tearing and attenuation posterior root attachment lateral meniscus but without complete transection. Grade 2 chondral thinning of the medial knee compartment. Subtle grade 3/4 chondrosis and mild subchondral cystic change posteromedial margin of the lateral tibial plateau with additional grade 2 chondral thinning throughout the lateral compartment. Low-grade tendinosis quadriceps tendon insertion as well as patellar tendon origin. No tear. Patella normally located. Patchy grade 2/3 chondral fibrillation throughout the patella most pronounced medially. Moderate size knee effusion. No acute fracture. Impression: High-grade radial tearing and attenuation posterior root attachment lateral meniscus with scattered degenerative signal change medial meniscus. Grade 2 chondral thinning medial and lateral knee compartments but with a dominant area of grade 3/4 chondrosis at the posteromedial margin of the lateral tibial plateau. 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 Moderate size knee effusion with 2 tiny loose bodies posterior to the PCL. Mucoid degeneration PCL. Electronically signed by: Phil Hung MD 04/15/2020 9:15 AM CDT
== END ==
LOC: MRI 07:00
PROVIDERS: ATTEND Family Medicine
DX: M23.300 Other meniscus derangements, unspecified lateral meniscus, right knee (principal); M23.303 Other meniscus derangements, unspecified medial meniscus, right knee; M94.261 Chondromalacia, right knee; M25.461 Effusion, right knee; M23.41 Loose body in knee, right knee

== ENCOUNTER → 2020-05-15 | Outpatient (CLI) | payer MEDICARE, BC ==
--- NOTE | 2020-05-15 13:03 | RAD ---
EXAM DESCRIPTION: Knee,Right Complete CLINICAL HISTORY: 64 years Female, PAIN IN RIGHT KNEE COMPARISON: None. Findings: Four views/radiographs Location: Right knee No acute fracture or dislocation. Lateral patellofemoral narrowing. Osteopenia. No significant joint effusion. IMPRESSION: No evidence of acute process in the right knee. Electronically signed by: Dung Alexander MD 05/15/2020 1:01 PM CDT
== END ==
LOC: RAD 08:24
PROVIDERS: ATTEND Orthopaedic Surgery
DX: M25.561 Pain in right knee (principal)

== ENCOUNTER → 2020-08-26 | Outpatient (CLI) | payer MEDICARE, BC | LOC: GMAE 14:30 | PROVIDERS: ATTEND Family Medicine | DX: E55.9 Vitamin D deficiency, unspecified (principal) ==

== ENCOUNTER → 2020-10-29 | Outpatient (CLI) | payer MEDICARE, BC ==
--- NOTE | 2020-10-29 17:37 | MRI ---
EXAM DESCRIPTION: Brain w/wo Contrast: Magnetic Resonance Imaging. CLINICAL HISTORY: 65 years Female HEARING LOSS COMPARISON: MRI scan of the brain without contrast April 2016. TECHNIQUE: Multiplanar, high-field MRI, multiple conventional sequences, and thin slice images of the temporal bone and internal auditory canals in the coronal and axial planes, without and with gadolinium IV contrast. No adverse reactions. Multiple axial diffusion sequences. FINDINGS: The left vestibulocochlear nerves in the left internal auditory canal are more posteriorly located compared to the contralateral right distended cochlear nerves and IAC. Also possible atrophy the left vestibulocochlear nerves. No mass or abnormal contrast enhancement bilaterally. Asymmetric bone formation on the left abutting the IAC with increased amount of bone formation, and decreased amount of mastoid air cells superiorly and inferiorly compared to the left side. No abnormal fluid in the bilateral mastoid air cells. Small foci of hyperintense FLAIR signal in the supraventricular and subcortical white matter frontoparietal and occipital lobes. No hemorrhage, no cerebral edema, no mass-effect. No abnormal contrast enhancement. Normal signal in the bilateral basal ganglia. Normal contrast enhancement. Normal signal in the brainstem and cerebellar hemispheres. No hemorrhage, no cerebral edema, no mass-effect. Normal contrast enhancement. Concordance of the diffusion and non-diffusion sequences with no evidence of acute or subacute infarction. Cortical sulci, ventricles, and other CSF spaces, and the subdural spaces are normally configured for patient's age. No effacement or displacement. No midline shift. No extra-axial hemorrhage. Normal contrast enhancement. Pituitary gland occupies most of the sella. Normal contrast enhancement. Base of the cerebellar tonsils is at the level of the foramen magnum. Diffuse mucoperiosteal thickening in the bilateral ethmoid air cells, and mucoperiosteal thickening also in the maxillary antra and sphenoid air cells. No definite air-fluid levels. . The bony calvarium is intact. IMPRESSION: 1. Thickening and possible narrowing or posterior displacement of the left internal carotid canal, with deformity and possible atrophy of the left vestibulocochlear nerves. No abnormal enhancement. No mass. 2. Increased bone formation around the left internal auditory canal and in the left mastoid region with much fewer mastoid air cells on the left compared to the right. This may be better defined by CT temporal bone/IAC study. 3. Minimal bilateral subcortical white matter focal lesions which are most likely age-related. No diffusion restriction, no hemorrhage, no cerebral edema, no midline shift. 4. Chronic paranasal sinusitis. Electronically signed by: Nima Martin MD 10/29/2020 5:35 PM [facility]
== END ==
LOC: MRI 09:57
PROVIDERS: ATTEND Otolaryngology Otolaryngology/Facial Plastic Surgery
DX: Z01.812 Encounter for preprocedural laboratory examination (principal); H90.3 Sensorineural hearing loss, bilateral; J32.9 Chronic sinusitis, unspecified; R90.82 White matter disease, unspecified; M89.8X8 Other specified disorders of bone, other site; I77.89 Other specified disorders of arteries and arterioles